=== PATIENT | male | born 1945 | race Caucasian/White ===

== ENCOUNTER → 2016-11-02 | Outpatient (CLI) | payer MEDICARE, OTHER ==
[~2016-11-02] MED LIST: ASPI-345 PO; CALC250T2 PO; FISH1CAP15 PO; FOLI0.4T2 PO; GARL10002 PO; GINK60CA2 PO; GINS100C PO; HCT25T PO; HYDR-3702 PO; HYDR-3811 PO; MULT-35 PO; MULT-557 PO; NAPR500T3 PO; PARO40TA47 PO; QUIN40TA25 PO; SMV20T PO; TORS100T4 PO; VITA400C21 PO; [UNRECOGNIZED DRUG - CODE] PO; [UNRECOGNIZED DRUG - OTHER]; methylPREDNISolone 80 MG/ML (DEPO MEDROL) VIAL IM ONE
--- NOTE | 2016-11-02 13:47 | PAIN MANAGEMENT ---
Date of note: 11/02/2016 Procedure: Epidural steroid injection This is a 71-year-old patient of Dr. Jim Cordova. The patient presents with a longstanding history of chronic low back pain. He has spinal stenosis. Informed consent was achieved for an epidural steroid injection at L5-S1. Orders for procedure verified. Patient denies any bleeding tendencies. After informed consent obtained, the patient was positioned for the lumbar epidural steroid injection. The area was prepped and draped using aseptic technique. The skin and overlying tissues were localized using 3 mL of 1% Preservative-Free lidocaine using a 25-gauge 1.5-inch needle. A 20-gauge Tuohy needle was advanced, using "loss of resistance" technique, to the epidural space. No blood, cerebral spinal fluid, pain, or paresthesia noted on entry of the epidural space. A 1 mL solution of Depo-Medrol 80 mg was injected slowly without mass volume effect. The patient was placed in supine position 15 minutes prior to being released with proper leg strength and vitals. Pre- and post procedure vital signs stable with no sensory or motor deficit noted. Instruction on followup contact and care provided to the patient.
== END ==
LOC: PMC 11:30
PROVIDERS: ATTEND Family Medicine
PROC: 3E0S33Z Introduction of Anti-inflammatory into Epidural Space, Percutaneous Approach (ICD-10-PCS; principal; 2016-11-02)
DX: M48.06 Spinal stenosis, lumbar region (principal); G89.29 Other chronic pain